=== PATIENT | female | born 1995 | race Caucasian/White ===

== ENCOUNTER → 2021-03-29 | Outpatient (CLI) | payer OTHER | LOC: KOH-I 11:00 | DX: G43.909 Migraine, unspecified, not intractable, without status migrainosus (principal) | CPT/HCPCS: 70450 ==

== ENCOUNTER 2022-04-18 16:37 | Inpatient (IN) | payer OTHER ==
[~2022-04-18] VITALS: Ht 160 cm; Wt 71.2 kg
[2022-04-18 17:58] LABS: HEMOGLOBIN 12.5 gm/dl (12.3-15.3); RED BLOOD COUNT 4.35 M/UL (4.00-5.10); WHITE BLOOD COUNT 8.7 K/UL (4.5-11.0)
[2022-04-18] MEDS ORDERED: PRENATAL VITAM1 EAC3 PO (18:44)
[2022-04-18] MEDS ORDERED: PEPCID40 MG PO (18:45)
[2022-04-19] MEDS ORDERED: IBUPROFEN600 MG PO (15:01)
[2022-04-19] MEDS ORDERED: COLACE 100MG C100 MG PO (15:01)
[2022-04-21] MEDS ORDERED: ONDANSETRON ODT8 MG PO (13:28)
[2022-04-21] MEDS ORDERED: COLACE 100MG C100 MG PO (13:28)
[2022-04-21] MEDS ORDERED: IBUPROFEN600 MG PO (13:28)
[2022-04-21] MEDS ORDERED: OMEPRAZOLE40 MG PO (13:28)
== END 2022-04-21 15:54 | disposition home or self-care (01) | DRG 807 ==
LOC: GENOP 16:37 → OB 17:08
PROVIDERS: Obstetrics & Gynecology; ADMIT Obstetrics & Gynecology
PROC: 3E033VJ Introduction of Other Hormone into Peripheral Vein, Percutaneous Approach (ICD-10-PCS; 2022-04-18)
PROC: 4A1HXCZ Monitoring of Products of Conception, Cardiac Rate, External Approach (ICD-10-PCS; 2022-04-18)
PROC: 10H07YZ Insertion of Other Device into Products of Conception, Via Natural or Artificial Opening (ICD-10-PCS; 2022-04-18)
PROC: 10E0XZZ Delivery of Products of Conception, External Approach (ICD-10-PCS; principal; 2022-04-19)
PROC: 0HQ9XZZ Repair Perineum Skin, External Approach (ICD-10-PCS; 2022-04-19)
PROC: 3E0234Z Introduction of Serum, Toxoid and Vaccine into Muscle, Percutaneous Approach (ICD-10-PCS; 2022-04-19)
DX: O36.5930 Maternal care for other known or suspected poor fetal growth, third trimester, not applicable or unspecified (principal); Z37.0 Single live birth; Z3A.37 37 weeks gestation of pregnancy; Z20.822 Contact with and (suspected) exposure to COVID-19; Z28.310 Unvaccinated for COVID-19; Z82.49 Family history of ischemic heart disease and other diseases of the circulatory system; O70.0 First degree perineal laceration during delivery; O99.345 Other mental disorders complicating the puerperium; F41.9 Anxiety disorder, unspecified; R10.2 Pelvic and perineal pain; R11.0 Nausea; K58.9 Irritable bowel syndrome, unspecified; O99.62 Diseases of the digestive system complicating childbirth; Z23 Encounter for immunization
CPT/HCPCS: 36415; 81001; 82962; 85014; 85018; 85025; 90715; J0595; J2590

== ENCOUNTER 2022-04-27 23:16 | Emergency (ER) | payer OTHER ==
[~2022-04-27 23:16] MED LIST: COLACE 100MG C100 MG PO; IBUPROFEN600 MG PO; OMEPRAZOLE40 MG PO; ONDANSETRON ODT8 MG PO; PEPCID40 MG PO; PRENATAL VITAM1 EAC3 PO
[2022-04-28 00:15] LABS: RED BLOOD COUNT 4.91 M/UL (4.00-5.10); WHITE BLOOD COUNT 9.2 K/UL (4.5-11.0)
[2022-04-28 00:42] LABS: BUN/CREATININE RATIO 18 (0-10)
== END 2022-04-28 01:30 | disposition left against medical advice (07) ==
LOC: ER1 23:16
PROVIDERS: Emergency Medicine
DX: R10.9 Unspecified abdominal pain (principal); R11.0 Nausea
CPT/HCPCS: 80053; 83690; 85025; 99281